=== PATIENT | male | born 1985 | race African-American/Black ===

== ENCOUNTER 2019-10-19 10:37 | Emergency (ER) | payer OTHER ==
[~2019-10-19] VITALS: Ht 175.3 cm; Wt 58.6 kg
[2019-10-19 10:46] VITALS: BP 118/64; TEMP 98.2
[2019-10-19] MEDS ORDERED: LEXAPRO 10MG10 MG PO (11:55)
[2019-10-19 12:00] VITALS: PULSE 79
== END 2019-10-19 12:10 | disposition home or self-care (01) ==
LOC: COL.ER 10:37
DX: F32.9 Major depressive disorder, single episode, unspecified (principal)